=== PATIENT | male | born 1960 | race American Indian/Alaskan Native ===

== ENCOUNTER → 2017-10-04 12:44 | Outpatient (CLI) | payer OTHER, SELFPAY ==
[2017-10-04 15:11] LABS: Prostate Specific Antigen < 0.064 ng/mL (0.10-4.00)
== END ==
PROVIDERS: PCP Family Medicine; Visit Provider Urology
DX: C61 Malignant neoplasm of prostate (principal)
CPT/HCPCS: 36415; 84153

== ENCOUNTER → 2017-12-28 10:40 | Outpatient (CLI) | payer OTHER, SELFPAY ==
[2017-12-28 12:41] LABS: Prostate Specific Antigen < 0.064 ng/mL (0.10-4.00)
== END ==
PROVIDERS: PCP Family Medicine; Visit Provider Urology
DX: C61 Malignant neoplasm of prostate (principal)
CPT/HCPCS: 36415; 84153

== ENCOUNTER → 2018-02-28 16:21 | Outpatient (CLI) | payer OTHER, SELFPAY ==
[2018-02-28 18:30] LABS: Prostate Specific Antigen < 0.064 ng/mL (0.10-4.00)
== END ==
PROVIDERS: PCP Family Medicine; Visit Provider Urology
DX: C61 Malignant neoplasm of prostate (principal)
CPT/HCPCS: 36415; 84153

== ENCOUNTER → 2018-05-02 09:29 | Outpatient (CLI) | payer OTHER, SELFPAY ==
[2018-05-02 10:40] LABS: Prostate Specific Antigen < 0.064 ng/mL (0.10-4.00)
== END ==
PROVIDERS: Family Provider Family Medicine; PCP Family Medicine; Visit Provider Nurse Practitioner Family
DX: Z85.46 Personal history of malignant neoplasm of prostate (principal)
CPT/HCPCS: 36415; 84153

== ENCOUNTER → 2018-07-07 15:26 | Outpatient (CLI) | payer OTHER, SELFPAY ==
[2018-07-07 17:17] LABS: Prostate Specific Antigen < 0.064 ng/mL (0.10-4.00)
== END ==
PROVIDERS: Family Provider Family Medicine; PCP Family Medicine; Visit Provider Nurse Practitioner Family
DX: Z85.46 Personal history of malignant neoplasm of prostate (principal)
CPT/HCPCS: 36415; 84153

== ENCOUNTER → 2018-10-17 12:45 | Outpatient (CLI) | payer OTHER, SELFPAY ==
[2018-10-17 14:53] LABS: Prostate Specific Antigen < 0.064 ng/mL (0.10-4.00)
== END ==
PROVIDERS: Family Provider Family Medicine; PCP Family Medicine; Visit Provider Nurse Practitioner Family
DX: Z85.46 Personal history of malignant neoplasm of prostate (principal)
CPT/HCPCS: 36415; 84153

== ENCOUNTER 2020-08-06 21:55 | Emergency (ER) | payer OTHER, SELFPAY ==
[2020-08-06 21:57] VITALS: BP 132/69; PULSE 71; RESP 16; TEMP 37.4; O2SAT 99
--- NOTE | 2020-08-06 22:03 | ED.BACK ---
HPI - Back Pain/Injury General Chief Complaint: Back Pain/Injury Stated Complaint: Back Pain Time Seen by Provider: 08/06/20 22:03 Source: patient and family Mode of arrival: Ambulatory Limitations: no limitations History of Present Illness HPI Narrative: Patient is a 60-year-old male here for evaluation of left upper back/neck discomfort. He states the symptoms started within the past 24 hours. He was moving objects out of his camper but does not remember a specific time where he potentially injured his shoulder. He states that he has difficulty with moving his neck and also moving his shoulder. He has no chest pain. Has not tried anything for symptoms prior to arrival. He did not fall. Related Data Home Medications Medication Instructions Recorded Confirmed colchicine 0.6 mg PO PRN PRN #0 11/21/15 indomethacin 50 mg PO Q8HP PRN #0 11/21/15 Allergies Allergy/AdvReac Type Severity Reaction Status Date / Time No Known Allergies Allergy Uncoded 08/04/17 12:57 Review of Systems Constitutional Constitutional: Denies fever(s) and Denies headache(s) ENT Ears, Nose, Mouth, and Throat: Denies headache(s) and Reports neck pain Cardiovascular Cardiovascular: Denies chest pain and Denies dyspnea Respiratory Respiratory: Denies dyspnea Musculoskeletal Musculoskeletal: Reports back pain and Reports neck pain Integumentary/Breasts Skin/Breast: Denies lesions and Denies rash Neurologic Neurologic: Denies behavioral changes and Denies headache(s) Psychiatric Psychiatric: Denies behavioral changes Hematologic/Lymphatic On Anticoagulants: No Allergic/Immunologic Allergic/Immunologic: Denies urticaria Patient History Medical History Malignant neoplasm of prostate (01/19/17) Pharyngitis Right ankle sprain Social History marital status: lives independently: Yes Exam Initial Vital Signs Initial Vital Signs: Vital Signs Temperature 99.4 F 08/06/20 21:57 Pulse Rate 71 08/06/20 21:57 Respiratory Rate 16 08/06/20 21:57 Blood Pressure 132/69 08/06/20 21:57 Pulse Oximetry 99 08/06/20 21:57 Const General: cooperative Limitations: mental status not altered HENKS Head: normal to inspection and normocephalic Back/Spine/Pelvis Cervical Spine: cervical muscular tenderness, pain with cervical ROM and No cervical spinal tenderness Thoracic/Lumbar Spine: No thoracic spinal tenderness and No lumbar spinal tenderness Skin Lesions: no lesions Rashes: no rashes Neuro General: patient alert, patient awake and patient oriented x3 Speech: speech normal Extrem General: capillary refill normal Psych Appearance: grossly normal and well kempt Course Orders Ordered: Discontinued Medications Cyclobenzaprine HCl (Cyclobenzaprine 10 Mg Tablet) 10 mg PO NOW ONE Stop: 08/06/20 22:16 Last Admin: 08/06/20 22:18 Dose: 10 mg Documented by: MAGY Cyclobenzaprine HCl (Cyclobenzaprine 10 Mg Prepack) 1 bottle MISC SEEINSTR ONE Stop: 08/06/20 22:16 Last Admin: 08/06/20 22:19 Dose: 1 bottle Documented by: MAGY Ketorolac Tromethamine (Ketorolac 60 Mg/2 Ml Vial) 30 mg IM NOW ONE Stop: 08/06/20 22:23 Last Admin: 08/06/20 22:24 Dose: 30 mg Documented by: MAGY Vital Signs Vital signs: Vital Signs - 8 hr 08/06/20 21:57 Temperature 99.4 F Pulse Rate 71 Respiratory Rate 16 Blood Pressure 132/69 Pulse Oximetry 99 MDM - Back Pain/Injury MDM Narrative Medical decision making narrative: Patient's physical exam is consistent with a left upper back muscle spasm. Is most likely includes the trapezius muscle however his rhomboids may also be involved as he is tender over this area. He did not fall. No indication for radiologic studies. Was given Toradol and muscle relaxers. He was given instructions on how he can improve his symptoms at home to include stretching ice and heat. He was given return precautions. He expressed understanding and agreement. Discharge Plan Departure Patient Disposition: Home Clinical Impression: Spasm of thoracic back muscle Instructions: DI for Back Spasm Activity Restrictions/Additional Instructions: You can continue with Tylenol/ibuprofen for any discomfort. Also recommend that you use heat/ice/massage and also light stretching. Contact your primary provider for a follow-up. Return to the emergency department for any new or worsening symptoms Prescriptions: No Action indomethacin 25 MG capsule 50 mg PO Q8HP PRNQty: 0 RF: 0 colchicine 0.6 MG capsule 0.6 mg PO PRN PRNQty: 0 RF: 0 Referrals: Ozzie Ramírez MD [Primary Care Provider] -
[2020-08-06] MEDS: CYCLOBENZAPRINE 10 MG TABLET PO (22:18)
[2020-08-06] MEDS: CYCLOBENZAPRINE 10 MG PREPACK 1 BOTTLE MISC (22:19)
[2020-08-06] MEDS: KETOROLAC 60 MG/2 ML VIAL 30 MG IM (22:24)
== END 2020-08-06 22:58 | disposition home or self-care (01) ==
LOC: ED 22:49
PROVIDERS: Emergency Provider Emergency Medicine; Family Provider Family Medicine; PCP Family Medicine
DX: M62.830 Muscle spasm of back (principal)
CPT/HCPCS: 96372; 99283; J1885

== ENCOUNTER → 2020-09-13 12:33 | Outpatient (CLI) | payer OTHER, SELFPAY ==
[2020-09-13 13:41] LABS: Hematocrit 37.8 % (41-53); Hemoglobin 12.2 g/dL (13.5-17.5)
[2020-09-13 13:56] LABS: Uric Acid 9.2 mg/dL (3.5-8.5)
[2020-09-18 08:09] LABS: Testosterone Free 8.76 ng/dL (5.00-21.00)
== END ==
PROVIDERS: Family Provider Family Medicine; PCP Physician Assistant; Referring Provider Naturopath; Visit Provider Naturopath
DX: M10.9 Gout, unspecified (principal); D64.9 Anemia, unspecified; R53.83 Other fatigue
CPT/HCPCS: 36415; 84402; 84403; 84550; 85014; 85018

== ENCOUNTER → 2020-09-17 09:25 | Outpatient (CLI) | payer OTHER, SELFPAY ==
[2020-09-18 09:09] LABS: Fecal Immunochemical Test Negative (Negative)
== END ==
PROVIDERS: Family Provider Family Medicine; PCP Physician Assistant; Referring Provider Naturopath; Visit Provider Naturopath
DX: R53.83 Other fatigue (principal); D64.9 Anemia, unspecified; M10.9 Gout, unspecified
CPT/HCPCS: 82274

== ENCOUNTER → 2021-12-31 10:18 | Outpatient (CLI) | payer OTHER, SELFPAY ==
[2021-12-31 12:14] LABS: COVID19 -Nasal RAPID Negative (Negative)
== END ==
PROVIDERS: Family Provider Family Medicine; PCP Physician Assistant; Visit Provider Surgery
DX: Z01.812 Encounter for preprocedural laboratory examination (principal); Z20.822 Contact with and (suspected) exposure to COVID-19
CPT/HCPCS: 87635; C9803

== ENCOUNTER 2022-01-01 06:37 | Day surgery (SDC) | payer OTHER, SELFPAY ==
[2022-01-01 07:20] VITALS: BP 122/77; PULSE 58; RESP 16; TEMP 36.2; O2SAT 99; BMI 22.1
[2022-01-01] MEDS: LACTATED RINGERS 1,000 ML 42 ML IV (07:40)
--- NOTE | 2022-01-01 07:50 | PM.HP.1 ---
History of Present Illness History of Present Illness Date Patient Seen: 01/01/22 Time Patient Seen: 07:50 Chief complaint: SDC Narrative: Cleve is a 61-year-old man who is here for a screening colonoscopy. His last colonoscopy was about 10 years ago and no polyps were found. Has no known family history of colon cancer. Patient History Medical History Malignant neoplasm of prostate (01/19/17) Pharyngitis Right ankle sprain Family & Social History Social History: household members spouse lives independently Yes Tobacco & Substance use: Smoking Status Never smoker alcohol intake never Substance Use Type does not use Meds Home Medications and Allergies Home Medications Medication Instructions Recorded Confirmed Type colchicine 0.6 mg capsule 0.6 mg PO PRN PRN Gout ##0 11/21/15 01/01/22 History indomethacin 25 mg capsule 50 mg PO Q8HP PRN Gout ##0 11/21/15 01/01/22 History sodium sul 1.479 gram-potas ch See Rx Instructions PO PER PKG DIR 12/11/21 01/01/22 Rx 0.188 gram-magnes sul 0.225 gram #24 tabs tablet (Sutab) allopurinol 300 mg tablet 300 mg PO DAILY 01/01/22 01/01/22 History Allergies Allergy/AdvReac Type Severity Reaction Status Date / Time No Known Drug Allergies Allergy Verified 01/01/22 07:41 Exam Vital Signs (past 8 hours): - 01/01/22 07:20 Temperature 97.2 F L Pulse Rate 58 L Respiratory Rate 16 Blood Pressure 122/77 Pulse Oximetry 99 Oxygen Delivery Method Room Air Oxygen Delivery Method Room Air Const General: healthy appearing Resp Effort & Inspection: normal respiratory effort Assessment & Plan Assessment and plan (1) Colon cancer screening: Status: Acute Plan We reviewed the risks and benefits of colonoscopy for colon cancer screening and he would like to proceed. Time Spent With Patient Critical Care time: I spent a total of [] minutes of critical care time on this patient's care today; this time is exclusive of procedural time.
[2022-01-01] MEDS: fentaNYL 100 MCG/2 ML INJ 175 MCG IV (07:56)
[2022-01-01] MEDS: MIDAZOLAM 5 MG/5 ML VIAL 6 MG IV (07:56)
--- NOTE | 2022-01-01 08:24 | PM.OP.COLON ---
Operative Date/Time/Diagnoses Date of procedure: 01/01/22 Time of procedure: 08:24 Pre-op diagnosis: Colon cancer screening Post-op diagnosis: same Procedure & Clinicians Study performed: Colonoscopy Same procedure as scheduled: Yes Surgeon: Adriano Riggs Procedure Notes Procedure in detail: Surgeon: Adriano Riggs MD Procedure: The patient was brought to the endoscopy suite, placed in left lateral decubitus position. The patient was connected to monitoring devices. A time-out was performed. Sedation was administered. Once the patient was adequately sedated, a digital rectal exam was performed and was normal. The scope was then inserted and advanced to the cecum where the appendiceal orifice was identified and photographed. The scope was then slowly withdrawn over greater than 6 minutes. The mucosa was thoroughly inspected. No polyps or other abnormalities were noted. The scope was retroflexed in the rectum. There was some mild internal hemorrhoids but no other abnormalities noted. The scope was straightened and removed. The patient was awakened and brought to recovery. Versed: 6 mg Fentanyl: 175 mcg EBL: 0 Findings: Normal colon Scope withdrawal time: 11 Sedation minutes: 25 Post-procedure Recommendations: Colonoscopy in 10 years Disposition: PACU
[2022-01-01 08:25] VITALS: BP 112/73; PULSE 55; RESP 16; TEMP 36.2; O2SAT 96
[2022-01-01 08:30] VITALS: BP 111/66; PULSE 55; RESP 16; O2SAT 96
[2022-01-01 08:35] VITALS: BP 106/62; PULSE 54; RESP 16; O2SAT 95
[2022-01-01 08:40] VITALS: BP 104/65; PULSE 53; RESP 17; O2SAT 95
[2022-01-01 08:49] VITALS: BP 120/78; PULSE 53; RESP 16; O2SAT 96
== END 2022-01-01 08:51 | disposition home or self-care (01) ==
PROVIDERS: Family Provider Family Medicine; PCP Physician Assistant; Referring Provider Surgery; Visit Provider Surgery
PROC: 0DJD8ZZ Inspection of Lower Intestinal Tract, Via Natural or Artificial Opening Endoscopic (ICD-10-PCS; CPT 45378; principal; 2022-01-01 07:45)
DX: Z12.11 Encounter for screening for malignant neoplasm of colon (principal); K64.8 Other hemorrhoids
CPT/HCPCS: 45378; 99152; 99153; J2250; J3010

== ENCOUNTER → 2024-01-07 13:08 | Outpatient (CLI) | payer MEDICAID, OTHER, SELFPAY ==
--- NOTE | 2024-01-07 13:11 | DI.RAD.S_ITS ---
PROCEDURE: XR KNEE RT 1TO2V INDICATIONS: KNEE PAIN TECHNIQUE: 3 views of the knee were acquired. COMPARISON: None. FINDINGS: Bones: There are no osseous abnormalities. Joints: There is mild degenerative change patellofemoral knee medial tibial femoral joints with small effusion small effusion in the patellofemoral joint effusion noted Soft tissues: Normal IMPRESSION: Mild degeneration with small effusion Dictated by: Travon Colin M.D. on 01/10/2024 at 6:40 Approved by: Travon Colin M.D. on 01/10/2024 at 6:42
== END ==
LOC: RAD 13:11
PROVIDERS: Family Provider Family Medicine; PCP Nurse Practitioner Family; Referring Provider Nurse Practitioner Family; Visit Provider Nurse Practitioner Family
DX: M10.09 Idiopathic gout, multiple sites (principal); M17.11 Unilateral primary osteoarthritis, right knee; M25.561 Pain in right knee; M25.461 Effusion, right knee
CPT/HCPCS: 73560